=== PATIENT | female | born 1965 | race Hispanic/Latino ===

== ENCOUNTER 2017-12-14 15:41 | Outpatient (CLI) | payer OTHER | END 2017-12-14 15:42 | disposition home or self-care (01) | LOC: BICMAMMO 15:41 | PROVIDERS: ATTEND Family Medicine | DX: Z12.31 Encounter for screening mammogram for malignant neoplasm of breast (principal) | CPT/HCPCS: 77067 ==

== ENCOUNTER 2018-08-19 19:03 | Emergency (ER) | payer SELFPAY ==
[~2018-08-19 19:03] MED LIST: ISOVUE-370 76%-LOCM 1 ML ONE
[2018-08-19 20:38] LABS: Hemoglobin 16.9 g/dL (12.0-16.0); Mean Corpuscular HGB CONC 34.5 g/dL (32.0-36.0); Mean Corpuscular Hemoglobin 30.7 pg (27.0-31.0); Mean Corpuscular Volume 88.8 fL (78.0-98.0); Mean Platelet Volume 8.6 fL (7.4-10.4); Platelet Count 130 thou/uL (130-400); RBC Distribution Width 12.3 % (11.5-14.5); White Blood Cell (WBC) Count 8.7 thou/uL (4.8-10.8)
[2018-08-19 20:51] LABS: Band 45 % (5-11); Lymphocytes 12 % (21-51); MDiff Complete? YES; Monocytes 7 % (0-10); Neutrophil 36 % (42-75); Platelet Morphology Comment Appears Adequate; Reflex for Review?? NO
--- NOTE | 2018-08-19 20:54 | CT ---
EXAM: Abdomen and pelvic CT scan with contrast: HISTORY: Diarrhea back pain fever COMPARISON: None FINDINGS: Small hiatal hernia. The visualized lung bases are clear. Liver: Borderline size central intrahepatic ducts but no significant common bile duct dilatation. Gallbladder:Unremarkable. Pancreas:Unremarkable Spleen:Unremarkable. Adrenal glands:Unremarkable. Kidneys:No renal calculus or acute obstruction.No solid or cystic mass. Abnormal small bowel with some dilatation as well as some scattered small bowel abnormal wall thicken ing as well as fairly extensive diffuse abnormal colonic wall thickening evidence for nonspecific enterocolitis. No CT evidence for acute appendicitis. The urinary bladder is unremarkable. Unremarkable visualized uterus and adnexa. No abscess or adenopathy. Trace pelvic fluid. IMPRESSION: Abnormal small bowel and colonic wall thickening and dilatation evidence for nonspecific enterocoliti s. Borderline size central intrahepatic bile ducts. Trace free cul-de-sac fluid. Small hiatal hernia.
[2018-08-19 20:55] LABS: ALT (SGPT) 19 U/L (8-55); AST (SGOT) 23 U/L (5-34); Albumin 4.5 g/dL (3.5-5.0); Alkaline Phosphatase 79 U/L (40-150); Anion Gap 16 mmol/L (10-20); BUN (Urea Nitrogen) 14 mg/dL (9.8-20.1); Bilirubin, Total 1.5 mg/dL (0.2-1.2); Calc. Creatinine Clearance 0 mL/min (70-130); Carbon Dioxide 22 mmol/L (22-29); Chloride 99 mmol/L (98-107); Estimated GFR-MDRD 56; Globulin 3.6 g/dL (2.4-3.5); Glucose 122 mg/dL (70-105); Lipase 12 U/L (8-78); Potassium 3.2 mmol/L (3.5-5.1); Protein, Total 8.1 g/dL (6.0-8.3); Sodium 134 mmol/L (136-145)
[2018-08-19 21:39] LABS: Bilirubin Negative (Negative); Blood, Urine Negative (Negative); Clarity CLEAR (Clear); Glucose, Urine (Dipstick) Negative (Negative); Leukocyte Trace (Negative); Nitrite Negative (Negative); Protein, Urine (Dipstick) Trace mg/dL (Neg-Trace); Urobilinogen 0.2 mg/dL (0.2-1.0)
[2018-08-19 21:40] LABS: Pathc Cast-AUWi Flag 2.17 (0-2.49); RBC/HPF 0-3 HPF (0-3)
[2018-08-19 21:44] LABS: BHCG - Serum Negative (NEGATIVE); Pregs Control Background? CLEAR/WHITE (CLR/WHITE); Pregs Control Bar Appear? YES (CONTROL BAR)
[2018-08-19 21:49] LABS: Bacteria/HPF Rare-Few HPF (None Seen)
== END 2018-08-19 23:00 | disposition home or self-care (01) ==
LOC: ERS 19:03
DX: R10.9 Unspecified abdominal pain (principal); R19.7 Diarrhea, unspecified
CPT/HCPCS: 36415; 74177; 80053; 81003; 81015; 83605; 83690; 84703; 85025; 87045; 87046; 87077; 87186; 87324; 87449; 87899; 93005; 96360; Q9966